=== PATIENT | female | born 1965 | race American Indian/Alaskan Native ===

== ENCOUNTER 2017-02-14 20:27 | Emergency (ER) | payer MEDICAID ==
[2017-02-14] MEDS ORDERED: HALDOL IM PRN (20:59)
--- NOTE | 2017-02-14 21:05 | Emergency Department Report ---
HPI - General Time Seen by Provider: 02/14/17 20:37 - HPI HPI: Beltr[place] 11 -->15 The patient is a 51-year-old female presenting with a chief complaint of threatening behavior. Patient has a history of paranoid schizophrenia and according to the production generalist has not been taking her daily medications for approximately 2 weeks. Patient also refused her monthly injection 2 days ago. Yesterday the patient reportedly got into a verbal altercation with another client. Today the patient was agitated and threatened to cut off female client' s penis. When asked why she came to the emergency department patient begins rambling same things are nonsensical such as "please masturbate about me." Location: Mental state Duration: [see above] Quality: Threatening Severity: Severe Modifying factors: [see above] Context: [see above] Mode of transportation: [not driving] ED Past Medical Hx - Past Medical History Hx Hypertension: Yes Hx Diabetes: Yes Hx Psychiatric Treatment: Yes (paranoid schizophrenia, depression) - Surgical History Past Surgical History?: No - Family History Family history: no significant - Social History Smoking Status: Never Smoker Substance Use Type: None ED Review of Systems ROS: Stated complaint: MH EVALUATION Other details as noted in HPI Comment: Unobtainable due to pts medical conditions Physical Exam - Physical Exam Physical Exam: GENERAL: The patient is well-developed well-nourished female lying on stretcher screaming at production generalist HEENT: Normocephalic. Atraumatic. Extraocular motions are intact. Patient has moist mucous membranes. NECK: Supple. Trachea midline CHEST/LUNGS: Clear to auscultation. There is no respiratory distress noted. HEART/CARDIOVASCULAR: Regular. There is no tachycardia. There is no gallop rub or murmur. ABDOMEN: Abdomen is soft, nontender. Patient has normal bowel sounds. There is no abdominal distention. SKIN: There is no rash. There is no edema. There is no diaphoresis. NEURO: The patient is awake, and alert. The patient is intermittently cooperative. The patient has normal speech MUSCULOSKELETAL: There is no evidence of acute injury. ED Medical Decision Making - Lab Data Result diagrams: 02/14/17 20:58 02/14/17 20:58 Laboratory Tests 02/14/17 02/14/17 02/14/17 20:58 20:58 20:58 WBC 5.5 RBC 4.58 Hgb 12.6 Hct 38.1 MCV 83 MCH 28 MCHC 33 RDW 13.4 Plt Count 222 Lymph % (Auto) 36.5 H [place] % (Auto) 7.3 Eos % (Auto) 0.6 Baso % (Auto) 1.0 Lymph # 2.0 [place] # 0.4 Eos # 0.0 Baso # 0.1 Seg Neutrophils % 54.6 Seg Neutrophils # 3.0 Carbon Dioxide 25 BUN 12 Creatinine 1.0 Estimated GFR > 60 BUN/Creatinine Ratio 12.00 Glucose 111 H Calcium 10.1 Salicylates < 0.3 L Acetaminophen Plasma/Serum Alcohol 02/14/17 02/14/17 20:58 20:58 WBC RBC Hgb Hct MCV MCH MCHC RDW Plt Count Lymph % (Auto) [place] % (Auto) Eos % (Auto) Baso % (Auto) Lymph # [place] # Eos # Baso # Seg Neutrophils % Seg Neutrophils # Carbon Dioxide BUN Creatinine Estimated GFR BUN/Creatinine Ratio Glucose Calcium Salicylates Acetaminophen < 15.0 Plasma/Serum Alcohol < 0.01 - Differential Diagnosis schizophrenia, homicidal ideation Critical care attestation.: If time is entered above; I have spent that time in minutes in the direct care of this critically ill patient, excluding procedure time. ED Disposition Clinical Impression: Schizophrenia, Homicidal ideation Disposition: DC/[facility] PSY HOSP/PSY UNIT Is pt being admited?: No Does the pt Need Aspirin: No Condition: Serious Time of Disposition: 23:57 (awaiting acceptance)
[2017-02-14 21:16] LABS: Eosinophils % (Auto) 0.6 % (0.0-4.3); Hematocrit 38.1 % (30.3-42.9); Hemoglobin 12.6 gm/dl (10.1-14.3); Mean Corpuscular HGB Conc 33 % (30-34); Mean Corpuscular Hemoglobin 28 pg (28-32); Mean Corpuscular Volume 83 fl (79-97); Platelet Count 222 K/mm3 (140-440); Red Blood Count 4.58 M/mm3 (3.65-5.03); Red Cell Distribution Width 13.4 % (13.2-15.2); White Blood Count 5.5 K/mm3 (4.5-11.0)
[2017-02-14 21:32] LABS: Anion Gap 19 mmol/L; Blood Urea Nitrogen 12 mg/dL (7-17); Calcium 10.1 mg/dL (8.4-10.2); Carbon Dioxide 25 mmol/L (22-30); Chloride 104.8 mmol/L (98-107); Glucose 111 mg/dL (65-100); Potassium 4.2 mmol/L (3.6-5.0); Sodium 145 mmol/L (137-145)
[2017-02-15] MEDS: ATIVAN IM PRN (19:20)
[2017-02-16] MEDS: ATIVAN IM PRN (04:14)
[2017-02-17 08:27] LABS: Urine Drugs of Abuse Note Disclamer
[2017-02-17 09:10] LABS: Bilirubin,Urine NEG (Negative); Blood,Urine NEG (Negative); Ketones,Urine NEG (Negative); Leukocyte Esterase,Urine TR (Negative); Mucus,Urine FEW /HPF; Nitrite,Urine NEG (Negative); Protein,Urine <15 mg/dL mg/dL (Negative); Urobilinogen,Urine < 2.0 mg/dL (<2.0)
--- NOTE | 2017-02-17 14:34 | Consultation ---
History of Present Illness - Reason for Consult Consult date: 02/17/17 Reason for consult: Mental Health Evaluation Requesting physician: BRO GILBERT - Chief Complaint Chief complaint: "I don't like [place]" - History of Present Psychiatric Illness The patient is a 51-year-old female presenting with a chief complaint of threatening behavior. Today patient is calm and cooperative with a tangential thought process. When I asked her about what happened at her transitional home, she stated, "nothing." She denies threatening another resident. She stated, "I would not kill a fly." She could not tell me what type of medication (PO/ injection) she take. Patient had to be redirected multiple times during our conversation. She denies SI/HI's and AVH's. Medications and Allergies Allergies Allergy/AdvReac Type Severity Reaction Status Date / Time No Known Allergies Allergy Verified 02/17/17 05:42 Home Medications Medication Instructions Recorded Confirmed Last Taken Type No Known Home Medications [No 02/16/17 02/16/17 Unknown History Reported Home Medications] Active Meds: Active Medications Haloperidol Lactate (Haldol) 10 mg IM Q8H PRN PRN Reason: Agitation Last Admin: 02/15/17 19:20 Dose: 10 mg Lorazepam (Ativan) 2 mg IM Q8H PRN PRN Reason: Agitation Last Admin: 02/16/17 04:14 Dose: 2 mg Past psychiatric history - Past Medical History Past Medical History: diabetes, hypertension Past Surgical History: No surgical history - past Psychiatric treatment and history psychiatric treatment history: Patient poor historian. She could not tell me if she has a psy hx or a fam psy hx. - Social History Social history: other (Resides at [place]) Mental Status Exam - Vital signs Last Vital Signs Temp 99 F 02/17/17 11:57 Pulse 70 02/17/17 11:57 Resp 18 02/17/17 12:02 BP 135/83 02/17/17 11:57 Pulse Ox 99 02/17/17 12:02 - Exam Narrative exam: ROS: (+) psychosis MSE; Appearance: cooperative, calm Behavior: good eye contact Speech: regular rate and tone Mood: "okay" Affect: flat Thought Process: tangential Thought Content: denies HI/SI's and VH's Motor Activity: ambulatory Cognition: A/Ox 3 Insight: poor Judgment: poor Results Result Diagrams: 02/14/17 20:58 02/14/17 20:58 All other labs normal. Assessment and Plan Assessment and plan: Impression: Unspecified Psychotic DO, Possible medication non-compliance. Today patient is calm and cooperative with a tangential thought process. UDS is negative. DDx; Schizophrenia Paranoid Type Recommendation/Plan: Continue 1013. Gather collateral to determine proper treatment.
[2017-02-18] MEDS: ATIVAN IM PRN (07:48)
--- NOTE | 2017-02-18 11:36 | Progress Note ---
Subjective - Reason for Consult Consult date: 02/18/17 Reason for consult: Psychiatry Follow-up - Chief Complaint Chief complaint: "I don't like [place]" The patient is a 51-year-old female presenting with a chief complaint of threatening behavior. Today patient is cooperative, but irritable during assessment. Patient was rocking back and forth during our conversation stated things about "Martin Kiser the preacher" that was not logical. She had to be redirected multiple times during our conversation. When I left her room, she followed me to tell me more about Martin Kiser. She denies SI/HI's and AVH's. Patient stated that she take risperdal. Mental Status Exam - Vital signs Last Vital Signs Temp 98.8 F 02/17/17 23:00 Pulse 88 02/18/17 07:37 Resp 22 02/18/17 07:37 BP 182/104 02/18/17 07:37 Pulse Ox 98 02/18/17 07:37 - Exam Narrative exam: MSE; Appearance: cooperative, irritable Behavior: good eye contact Speech: regular rate and tone Mood: "okay" Affect: flat Thought Process: tangential Thought Content: denies HI/SI's and AVH's, delusional Motor Activity: ambulatory Cognition: A/Ox 3 Insight: poor Judgment: poor Assessment and Plan Impression: Unspecified Psychotic DO, Possible medication non-compliance. Today patient is calm and cooperative with a tangential thought process. UDS is negative. Recommendation/Plan: Continue 1013 with placement to inpatient psy services. Start Risperdal 0.5 mg PO HS for psychotic symptoms and Cogentin 0.5 mg PO HS for EPS prevention. Discussed with patient possible metabolic side effects of Risperdal.
[2017-02-18] MEDS: RisperDAL PO SCH (23:00)
[2017-02-18] MEDS: COGENTIN PO SCH (23:00)
--- NOTE | 2017-02-19 18:02 | Progress Note ---
Subjective - Reason for Consult Consult date: 02/19/17 Reason for consult: follow up - Chief Complaint Chief complaint: "God healed me" The patient is a 51-year-old female presenting with a chief complaint of threatening behavior. Today patient is cooperative, but irritable during assessment. Patient was rocking back and forth during our conversation. She was tangential with loose associations talking about sexual thoughts and nondenominational information.She had to be redirected multiple times during our conversation. She denies SI/HI's and AVH's. She denies medication side effects. Mental Status Exam - Vital signs Last Vital Signs Temp 98.3 F 02/19/17 09:08 Pulse 88 02/19/17 09:08 Resp 18 02/19/17 09:08 BP 146/88 02/19/17 09:08 Pulse Ox 100 02/19/17 09:08 Assessment and Plan MSE: Appearance: cooperative, irritable Behavior: good eye contact Speech: regular rate and tone Mood: labile Affect: labile Thought Process: tangential, loose associations Thought Content: denies HI/SI's and AVH's, delusional Motor Activity: rocking Cognition: A/Ox 3 Insight: poor Judgment: poor Assessment and Plan Impression: Unspecified Psychotic DO, Possible medication non-compliance. Today patient is calm and cooperative with a tangential thought process. UDS is negative. Continues to be psychotic Recommendation/Plan: Continue 1013 with placement to inpatient psy services. Start Risperdal 0.5 mg PO HS for psychotic symptoms and Cogentin 0.5 mg PO HS for EPS prevention. Discussed with patient possible metabolic side effects of Risperdal
[2017-02-19] MEDS: COGENTIN PO SCH (22:19)
[2017-02-19] MEDS: RisperDAL PO SCH (22:21)
--- NOTE | 2017-02-20 13:49 | Progress Note ---
Subjective - Reason for Consult Consult date: 02/20/17 Reason for consult: Psychiatry Follow-up - Chief Complaint Chief complaint: "When do I get to leave" The patient is a 51-year-old female presenting with a chief complaint of threatening behavior. Today patient is cooperative, but disorganized during the assessment. Patient would not stop talking, so I had to interject. After she stopped talking, she would stare at the wall for seconds, possible responding to some type of stimuli. She denies SI/HI's and AVH's. Mental Status Exam - Vital signs Last Vital Signs Temp 97.8 F 02/20/17 08:38 Pulse 76 02/20/17 08:38 Resp 16 02/20/17 08:39 BP 155/87 02/20/17 08:38 Pulse Ox 100 02/20/17 08:39 - Exam Narrative exam: MSE; Appearance: cooperative, calm Behavior: good eye contact Speech: regular rate and tone Mood: "okay" Affect: flat Thought Process: tangential Thought Content: denies HI/SI's and AVH's,disorganized Motor Activity: ambulatory Cognition: A/Ox 3 Insight: poor Judgment: poor Assessment and Plan Impression: Unspecified Psychotic DO, Possible medication non-compliance. Today patient is cooperative, but disorganized during the assessment. Recommendation/Plan: Continue 1013 with placement to inpatient psy services. Modify Risperdal to 1 mg PO HS for psychotic symptoms and Cogentin 0.5 mg PO HS for EPS prevention. Discussed with patient possible metabolic side effects of Risperdal.
[2017-02-20] MEDS: RisperDAL PO SCH (22:31)
[2017-02-20] MEDS: COGENTIN PO SCH (22:31)
--- NOTE | 2017-02-21 14:11 | Progress Note ---
Subjective - Reason for Consult Consult date: 02/21/17 Reason for consult: Psychiatry Follow-up - Chief Complaint Chief complaint: "Vinny" The patient is a 51-year-old female presenting with a chief complaint of threatening behavior. Today patient is cooperative and calm during the assessment. She stated that she does not want to return to [place] her current residence. She stated that staff isn't nice to her. She stated that she isn't "crazy." She denies SI/HI's, AVH's, and depression. Patient was observed completing her ADL's. Per the staff, no behavioral disturbances overnight. Mental Status Exam - Vital signs Last Vital Signs Temp 98.0 F 02/20/17 21:31 Pulse 98 H 02/20/17 21:31 Resp 18 02/20/17 21:32 BP 147/67 02/20/17 21:31 Pulse Ox 98 02/20/17 21:32 - Exam Narrative exam: MSE: Appearance: cooperative, calm Behavior: good eye contact Speech: regular rate and tone Mood: "okay" Affect: flat Thought Process: circumstantial Thought Content: denies HI/SI's and AVH's Motor Activity: ambulatory Cognition: A/Ox 3 Insight: limited Judgment: limited Assessment and Plan Impression: Unspecified Psychotic DO, Possible medication non-compliance. Today patient is cooperative and calm during the assessment. Recommendation/Plan: Evaluate 1013 in 24 hours to proper dispo. Continue Risperdal 1 mg PO HS and Cogentin 0.5 mg PO HS. Discussed possible metabolic side effects of Risperdal with patient. Associate Professor Of Pathology involvement, patient will need placement.
[2017-02-21] MEDS: COGENTIN PO SCH (22:05)
[2017-02-21] MEDS: RisperDAL PO SCH (22:05)
--- NOTE | 2017-02-22 16:35 | Progress Note ---
Subjective - Reason for Consult Consult date: 02/22/17 Reason for consult: follow up - Chief Complaint Chief complaint: "He lied" The patient is a 51-year-old female presenting with a chief complaint of threatening behavior. Today patient is uncooperative. She is irritable/labile today. No behavioral disturbances overnight. Mental Status Exam - Vital signs Last Vital Signs Temp 97.6 F 02/22/17 07:28 Pulse 77 02/22/17 07:28 Resp 20 02/22/17 07:28 BP 150/98 02/22/17 07:28 Pulse Ox 99 02/22/17 07:28 Assessment and Plan MSE: Appearance: unkempt Behavior: uncooperative Speech: regular rate and tone Mood: labile Affect:labile Thought Process: circumstantial Thought Content: denies HI/SI's and AVH's Motor Activity: ambulatory Cognition: A/Ox 3 Insight: limited Judgment: limited Impression: Unspecified Psychotic DO, Possible medication non-compliance. Today patient is uncooperative Recommendation/Plan: Continue 1013. Continue Risperdal 1 mg PO HS and Cogentin 0.5 mg PO HS. Discussed possible metabolic side effects of Risperdal with patient. Electronics Lead involvement, patient will need placement.
[2017-02-22] MEDS: RisperDAL PO SCH (23:41)
[2017-02-22] MEDS: COGENTIN PO SCH (23:41)
--- NOTE | 2017-02-23 15:56 | Progress Note ---
Subjective - Reason for Consult Consult date: 02/23/17 Reason for consult: follow up - Chief Complaint Chief complaint: "You are all liars" The patient is a 51-year-old female presenting with a chief complaint of threatening behavior. Today patient is uncooperative. She is irritable/labile today. No behavioral disturbances overnight. She is reading her bible and states "you are all liars." Mental Status Exam - Vital signs Last Vital Signs Temp 97.7 F 02/23/17 09:22 Pulse 80 02/23/17 09:22 Resp 18 02/23/17 09:22 BP 136/82 02/23/17 09:22 Pulse Ox 95 02/23/17 09:22 Assessment and Plan MSE: Appearance: unkempt Behavior: uncooperative Speech: regular rate and tone Mood: labile Affect:labile Thought Process: circumstantial Thought Content: denies HI/SI's and AVH's Motor Activity: ambulatory Cognition: A/Ox 3 Insight: limited Judgment: limited Impression: Unspecified Psychotic DO, Possible medication non-compliance. Today patient is uncooperative Recommendation/Plan: Continue 1013. Continue Risperdal 1 mg PO HS and Cogentin 0.5 mg PO HS. Discussed possible metabolic side effects of Risperdal with patient. Claims Consultant involvement, patient will need placement.
[2017-02-23] MEDS: RisperDAL PO SCH (21:54)
[2017-02-23] MEDS: COGENTIN PO SCH (21:55)
--- NOTE | 2017-02-24 15:48 | Progress Note ---
Subjective - Reason for Consult Consult date: 02/24/17 Reason for consult: Psychiatry Follow-up - Chief Complaint Chief complaint: "You are all liars" The patient is a 51-year-old female presenting with a chief complaint of threatening behavior. Today patient is calm, but uncooperative. She stated that all the staff is liars. She would not elaborate more about how she feel. She was reading her bible upon my arrival to her room. She denies SI/HI's and AVH' s. Mental Status Exam - Vital signs Last Vital Signs Temp 97.7 F 02/24/17 09:39 Pulse 81 02/24/17 09:39 Resp 17 02/24/17 09:39 BP 151/96 02/24/17 09:39 Pulse Ox 100 02/24/17 09:39 - Exam Narrative exam: MSE: Appearance: uncooperative, calm Behavior: good eye contact Speech: regular rate and tone Mood: "why you ask" Affect: labile Thought Process: tangential Thought Content: denies HI/SI's and AVH's Motor Activity: ambulatory Cognition: A/Ox 3 Insight: poor Judgment: poor Assessment and Plan Impression: Unspecified Psychotic DO, Possible medication non-compliance. Today patient is uncooperative. Recommendation/Plan: Continue 1013 with placement to [facility] pending transport time. Continue Risperdal 1 mg PO HS and Cogentin 0.5 mg PO HS. Discussed possible metabolic side effects of Risperdal with patient.
[2017-02-24] MEDS: COGENTIN PO SCH (22:16)
[2017-02-24] MEDS: RisperDAL PO SCH (22:18)
[2017-02-24 22:49] VITALS: BP 132/77
== END 2017-02-24 22:41 ==
LOC: EEVIPCON 20:27 → ED 20:27
DX: R45.850 Homicidal ideations (principal); F20.0 Paranoid schizophrenia; F32.9 Major depressive disorder, single episode, unspecified; E11.9 Type 2 diabetes mellitus without complications; I10 Essential (primary) hypertension
CPT/HCPCS: 36415; 80048; 80307; 81001; 85025; 96372; 99285; G0480; J1630; J2060; 80320